=== PATIENT | male | born 1985 | race African-American/Black ===

== ENCOUNTER 2017-03-14 15:00 | Inpatient (IN) | payer OTHER ==
[~2017-03-14] VITALS: Ht 180.3 cm; Wt 66.7 kg
--- NOTE | ~2017-03-14 | PA ---
Unit #: [id number] #: [id number] Patient: JEWELS PHILLIP [id number] [place] [address] [id number] MR#: [id number] NAME: JEWELS PHILLIP ROOM: P177 Age: 31 Sex: M Admission Date: 03/14/2017 : 1985 Date of Assessment: 03/15/2017 Attending Physician: Kadeem Self M.D. Admitting Physician: Kadeem Self M.D. Primary Care Physician: Primary Care Physician No PSYCHIATRIC ASSESSMENT IDENTIFYING INFORMATION The patient is a 31-year-old single male admitted after abusing methamphetamine and crack cocaine. He complains of depressed mood but no suicidal ideation. CHIEF COMPLAINT I'm not suicidal. INFORMANT(S) The patient, patient's reliability is good. HISTORY OF PRESENT ILLNESS The patient is a 31-year-old male admitted to the [address] [place] [address] after he had presented to this facility after he briefly abused cocaine and methamphetamine outside the hospital. The patient reports that he has been suffering from depression and had hoped that these substances would help with his use. The patient reports that the salient stressor in his life is the of his aunt while he was incarcerated last year. He and his aunt were very close. He now lives with his mother with whom he describes a contentious relationship. The patient reported some suicidal ideation when seen last evening but not attributes these statements to his state of post cocaine depression. He does however complain of depressed mood and is tearful during interview reporting reduced sleep and appetite, sad mood, loss of motivation, etc. The patient also expresses sadness that he is unable to visit his son. He has never been in psychiatric treatment and had has never been on psychotropic medications per his report. He does complain of decreased sleep and energy as well as anhedonia. PAST PSYCHIATRIC HISTORY As above. PAST MEDICAL HISTORY The patient suffers from asthma. MEDICATIONS None. ALLERGIES None. FAMILY HISTORY Unit #: [id number] #: [id number] Patient: JEWELS PHILLIP Noncontributory. SOCIAL HISTORY The patient lives with his mother. He is not presently employed. He is on parole for a parole violation per his report. He did complete his GED. MENTAL STATUS EXAMINATION At this time reveals the patient to be a thin heavily tattooed male appearing his stated age. He is in no apparent physical distress at the time of examination. He is awake, alert, and oriented in all spheres. His mood is dysphoric and tearful. His affect congruent. Speech is generally relevant and coherent. There are no gross deficits in memory or cognition noted. Intelligence is judged to be in the average range based on fund of knowledge. The patient is cooperative throughout the interview. He is currently denying suicidal or homicidal ideation or psychotic features. Judgment and insight appear to be intact. ASSETS AND LIABILITIES ASSETS: Motivation for change. LIABILITIES: None noted. DIAGNOSTIC IMPRESSION 1. Major depressive disorder single episode moderate. 2. Cocaine use disorder. TREATMENT PLAN The patient remains hospitalized for safety and stabilization. We will begin a trial of Lexapro 10 mg nightly to address the patient's depressive symptoms and discharge could take place as early as tomorrow. The patient looks to be a good candidate for participation in the intensive outpatient program following discharge. ESTIMATED LENGTH OF STAY One to two days. Dictated by... Kadeem Self M.D. URI/rodriguez TD: 03/15/2017 19:51 JOB #: [id number] PSYCHIATRIC ASSESSMENT Page 1 of 1 X Kadeem Self MD X PSYCHIATRIC ASSESSMENT
--- NOTE | ~2017-03-14 | DS ---
Unit #: [id number] #: [id number] Patient: JEWELS PHILLIP [id number] [facility] [address] [place] [address] [id number] MR#: [id number] NAME: JEWELS PHILLIP ROOM: P177 Age: 31 Sex: M Admission Date: 03/14/2017 : 1985 Discharge Date: 03/16/2017 Attending Physician: Kadeem Self M.D. Primary Care Physician: Primary Care Physician No DISCHARGE SUMMARY REASON FOR ADMISSION The patient is a 31-year-old, male, admitted with depressed mood and suicidal ideation. HOSPITAL COURSE The patient was admitted to the [facility] unit and placed on suicide precautions. He was begun on Lexapro 10 mg daily to address depressive symptoms and attended CD program. By 03/16/2017, the patient expressed contrition over the ensuing hospitalization and requested discharge from the hospital. It was so ordered. FINAL DIAGNOSES Major depressive disorder, single episode, moderate; cocaine use disorder. DISPOSITION ON DISCHARGE The patient is discharged on the following medications: Lexapro 10 mg daily for depression. DISCHARGE INSTRUCTIONS No dietary or physical restrictions were placed on the patient at the time of discharge. FOLLOWUP Followup will take place through the auspices of community mental health resources in the intensive outpatient program provided by this facility. PROGNOSIS The patient's prognosis is considered fair. Dictated by... Kadeem Self M.D. URI/ashleigh TD: 03/18/2017 10:58 JOB #: [id number] Unit #: [id number] #: [id number] Patient: JEWELS PHILLIP DISCHARGE SUMMARY Page 1 of 1 X Kadeem Self MD X DISCHARGE SUMMARY
--- NOTE | ~2017-03-14 | HP ---
Unit #: [id number] #: [id number] Patient: JEWELS PHILLIP [id number] [place] [address] [id number] MR#: [id number] NAME: JEWELS PHILLIP ROOM: P177 Age: 31 Sex: M Admission Date: 03/14/2017 : 1985 Attending Physician: Kadeem Self M.D. Admitting Physician: Kadeem Self M.D. Primary Care Physician: Primary Care Physician No HISTORY AND PHYSICAL HISTORY OF PRESENT ILLNESS Jewels is a 31 year old admitted to [facility] with depression and verbalizing wanting to hurt himself. PAST MEDICAL HISTORY Nothing significant. PAST SURGICAL HISTORY Nothing reported. ALLERGIES No known drug allergies. SOCIAL HISTORY Smokes one pack per day. Drinks alcohol on occasion. Denies illicit drug use. FAMILY HISTORY Medically noncontributory. REVIEW OF SYSTEMS CONSTITUTIONAL: No fever or chills. HEENT: Denies any sore throat, ear pain or runny nose. CARDIOVASCULAR: Denies chest pain, irregular heart rhythm or palpitations. CHEST: Denies shortness of breath or cough. No hemoptysis. GASTROINTESTINAL: Denies nausea, vomiting, diarrhea or chronic constipation. ENDOCRINE: Denies history of increased thirst or urination. No recent significant weight loss or gain. GENITOURINARY: Denies dysuria, frequency, or hematuria. SKIN: Denies any rashes. HEMATOLOGIC: Denies history of increased bleeding or bruising. MUSCULOSKELETAL: Denies any hot, swollen joints. No generalized muscle pain. NEUROLOGIC: Denies problems with vision or speech. No frequent, severe headaches. No numbness, tingling or weakness in any extremities. Denies loss of bladder or bowel control. CURRENT MEDICATIONS 1. Lexapro 10 mg q day 2. Milk of Magnesia p.r.n. 3. Maalox p.r.n. Unit #: [id number] #: [id number] Patient: JEWELS PHILLIP 4. Tylenol p.r.n. 5. Nicotine patch 14 mg q day PHYSICAL EXAMINATION GENERAL: Alert, well-nourished, in no apparent distress. VITAL SIGNS: Blood pressure 100/60, heart rate 90, respirations 16, temperature 98.6. WEIGHT: 147 pounds. HEIGHT: 5'11". SKIN: Warm and dry without rash or lesion. HEENT: Normocephalic. TMs not viewed. Oral and nasal passages clear. Conjunctivae clear. Pupils equal, round and reactive to light and accommodation. Extraocular movements intact. NECK: Supple without lymphadenopathy or thyromegaly. HEART: Regular rate and rhythm without murmur. LUNGS: Clear. ABDOMEN: Soft, nontender. : Not done. EXTREMITIES: No evidence of cyanosis, clubbing or edema. Moves all extremities without focal deficit. NEUROLOGICAL: Grossly within normal limits. Cranial Nerves: II: Visual alfred are intact. III, IV AND : Extraocular movements are intact. Pupils are equal, round and reactive to light. V: Facial sensation is grossly normal. VII: Facial movements and expression are normal. VIII: Auditory acuity grossly intact. IX, X: Uvula is midline. Phonation is normal. XI: Patient shrugs shoulders and turns head normally. XII: Tongue protrudes in the midline. Sensory and Motor Function: Sensory and motor sensation is grossly normal. Motor: moves all extremities well. Coordination: Gait is normal. Deep Tendon Reflexes: Intact. IMPRESSION Psychiatric admission. RECOMMENDATIONS PSYCHIATRIC: Per psychiatrist. MEDICAL: I see no contraindications to participating in facility's activities. MEDICAL PROGNOSIS Good. MEDICAL CONDITION Stable. Dictated by... Jackelin Aguilar P.A.-C. for Primo Ac/rodriguez TD: 03/15/2017 20:43 Unit #: [id number] #: [id number] Patient: JEWELS PHILLIP JOB #: [id number] HISTORY AND PHYSICAL Page 1 of 1 X Jackelin Aguilar HISTORY AND PHYSICAL
--- NOTE | ~2017-03-14 | A ---
[facility] DATE: 03/16/17 Patient: JEWELS PHILLIP Physician: SLAVA Address: [address] [place] [address] Room/Bed: [address], Zip: [place] [address] Admit Date: 03/14/17 Date of : [birth year] Height: 5 11 Weight: [id number] NUTRITIONAL ASSESSMENT: REASON: UNINTENTIONAL WEIGHT LOSS PATIENT ADMITTED FOR SI, DEPRESSION, SUBSTANCE ABUSE PMH: ASTHMA Anthropometrics: HT: 71", WT: 147#, BMI: 20.5 Labs: 03/15- NUTRITIONAL LABS WNL Meds: LEXAPRO Assessment: PATIENT IS A 31 Y/O MALE ADMITTED FOR SI, DEPRESSION, AND SUBSTANCE ABUSE. PATIENT IS CURRENTLY UNEMPLOYED, LIVES WITH HIS MOTHER, SMOKES 1 PPD, HAS DAILY MARIJUANA USE, OCCASIONAL XANAX ABUSE, AND RECENTLY STARTED USING COCAINE AND METH. UPON ADMIT PATIENT STATED A POOR APPETITE WITH A 20# WEIGHT LOSS X LAST SEVERAL MONTHS, HE IS ONLY SNACKING, AND HE AVERAGES 4HOURS OF SLEEP/NIGHT. THERE ARE NO SKIN OR GI ISSUES NOTED ATT. THERE IS NO WEIGHT HX RECORDED IN [employer]. PATIENT IS ON A REGULAR DIET WITH LARGE PORTION ENTREES AND ENSURE TID. HIS BMI IS WITHIN A HEALTHY RANGE. Dx: UNINTENTIONAL WEIGHT LOSS R/T CURRENT CONDITION AEB SELF-REPORTED WEIGHT LOSS, NUTRITIONAL RISK POINT Intervention: REGULAR DIET, LARGE PORTIONS, MEDS PER MD, PSYCH Monitoring, Evaluation and Goals: 1. ADEQUATE PO INTAKES >50% OF MEALS 2. PREVENT, CORRECT MICRO/MACRO NUTRIENT DEFICIENCIES 3. WEIGHT; MAINTAIN CURRENT WEIGHT, PREVENT WEIGHT LOSS MONITOR: WEIGHTS, LABS, PO/FLUID INTAKES Recommendations: 1. CONTINUE REGULAR DIET WITH LARGE PORTION ENTREES TOLERATED. RECOMMEND TO D/C ENSURE TID D/T NO NUTRITIONAL NEED FOR AN EXCESSIVE CALORIC INTAKE 2. ENCOURAGE ADEQUATE! PO AND FLUID INTAKES 3. OBTAIN WEIGHTS ROUTINELY (EVERY 3-4 DAYS) RD TO F/U PER PROTOCOL AND PRN R/T PATIENT MILDLY COMPROMISED [facility] DATE: 03/16/17 Patient: JEWELS PHILLIP Physician: SLAVA Address: [address] [place] [address] Room/Bed: [address], Zip: [place] [address] Admit Date: 03/14/17 Date of : [birth year] Height: 5 11 Weight: [id number] Respectfully, REEMA BALTAZAR RD, LD [facility] Psychiatric cc: client file
[2017-03-15 09:38] LABS: EOSINOPHIL# 0.3 X10e3 (0-0.7); EOSINOPHIL% 5.9 % (0.0-7.0); HEMATOCRIT 42.9 % (38.0-50.0); HEMOGLOBIN 13.8 gm/dL (13.0-16.0); LYMPHOCYTE% 46.5 % (17.0-45.0); MEAN CORPUSCULAR HEMOGLOBIN 27.1 PG (28-34); MEAN CORPUSCULAR HGB CONC 32.3 g/dL (30-36); MEAN PLATELET VOLUME 8.4 FL (6.5-11.5); MONOCYTE# 0.7 X10e3 (0-1.0); MONOCYTE% 16.5 % (3.0-12.0); NEUTROPHIL# 1.3 X10e3 (1.5-7.1); NEUTROPHIL% 30.1 % (40-75); PLATELET COUNT 194 X10e3 (140-420); RED BLOOD COUNT 5.11 X10e (3.90-5.60); RED CELL DISTRIBUTION WIDTH 13.2 % (11.0-15.5); WHITE BLOOD COUNT 4.3 X10e3 (4.0-10.5)
[2017-03-15 09:40] LABS: DIFF IND NO
[2017-03-15 09:52] LABS: ALBUMIN SERUM 4.3 g/dL (3.5-5.0); BILIRUBIN,TOTAL 0.7 mg/dL (0.2-2.0); CALCIUM SERUM 9.3 mg/dL (8.4-10.2); GLOM FILT RATE Estimated 114.9 mL/min (>60); PROTEIN TOTAL SERUM 7.2 g/dL (6.0-8.3)
[2017-03-16 09:38] LABS: URINE APPEARANCE CLEAR; URINE BILIRUBIN NEG (NEG); URINE BLOOD NEG (NEG); URINE COLOR YELLOW; URINE GLUCOSE NEG (NEG); URINE KETONE NEG (NEG); URINE LEUKOCYTE ESTERASE TRACE (NEG); URINE NITRATE NEG (NEG); URINE PROTEIN NEG (NEG); URINE UROBILINOGEN 0.2 MG/DL (NEG)
[2017-03-16 09:42] LABS: U HYALINE CASTS AUWI 0-2 /[LPF]; URBCS1 AUWI 0-2 /[HPF] (0-2); URINE BACTERIA AUWI NEG (NEGATIVE); URINE SQUAMOUS EPITHELIAL CELL NONE SEEN /[HPF]
[2017-03-16 10:16] LABS: AMPHETAMINE POS (NEG); BARBITURATES NEG (NEG); BENZODIAZEPINES NEG (NEG); COCAINE NEG (NEG); MARIJUANA POS (NEG); OPIATES NEG (NEG); TRICYCLIC ANTIDEPRESSANTS NEG (NEG); U METHADONE NEG (NEG)
== END 2017-03-16 15:45 | DRG 885 ==
LOC: P1E 17:51
PROVIDERS: Specialist
DX: F32.1 Major depressive disorder, single episode, moderate (principal); R45.851 Suicidal ideations; F14.10 Cocaine abuse, uncomplicated; J45.909 Unspecified asthma, uncomplicated; F17.210 Nicotine dependence, cigarettes, uncomplicated
CPT/HCPCS: 80053; 80307; 81003; 85025